=== PATIENT | male | born 1990 | race Two or more races ===

== ENCOUNTER 2016-10-28 08:33 | Day surgery (SDC) | payer OTHER ==
[~2016-10-28] VITALS: Ht 185.4 cm; Wt 86.2 kg
[2016-10-28] VITALS (10 sets, daily range): BP systolic 103–144; BP diastolic 62–81; PULSE 62–70; RESP 10–20; Ht 185.4 cm; Wt 86.2 kg
[2016-10-28] MEDS ORDERED: MEPERIDINE 25 MG INJ IV PRN (10:30)
[2016-10-28] MEDS ORDERED: DIPHENHYDRAMINE 50 MG INJ IV PRN (10:30)
[2016-10-28] MEDS ORDERED: ONDANSETRON 4 MG INJ IV PRN (10:30)
[2016-10-28] MEDS ORDERED: METOCLOPRAMIDE 10 MG INJ IV PRN (10:30)
[2016-10-28] MEDS ORDERED: FENTAnyl 50 MCG/ML VIAL IV PRN ×2 (10:30)
[2016-10-28] MEDS ORDERED: HYDROmorphONE (0.2 MG/ML) 10ML SYG IV PRN ×3 (10:30)
[2016-10-28] MEDS ORDERED: BUPIVACAINE 0.25% (MPF) 30 ML INJ ONE (11:02)
[2016-10-28] MEDS ORDERED: LIDOCAINE 2% (MDV) 20 ML INJ ONE (11:02)
[2016-10-28] MEDS ORDERED: FENTAnyl 50 MCG/ML VIAL ONE (11:32)
[2016-10-28] MEDS ORDERED: MIDAZOLAM 1 MG/ML 2 ML INJ ONE (11:42)
[2016-10-28] MEDS ORDERED: PROPOFOL 20 ML ONE (11:42)
[2016-10-28] MEDS ORDERED: LIDOCAINE 2% (SDV) 5 ML INJ ONE (11:42)
--- NOTE | 2016-10-28 12:13 | OPR ---
Date/Time of Note Date/Time of Note DATE: 10/28/16 TIME: 12:12 Operative Report Preoperative Diagnosis left arm mass right arm mass left upper leg mass Postoperative Diagnosis same Operation/Procedure Performed excision of left upper arm mass 2 cm incision and 2 cm mass excision of right upper arm mass 2 cm incision and 2 cm mass excision of left upper leg mass 6 cm incision and 7 cm mass localized adjacent tissue transfer with the use of skin flaps 20 sq cm defect therapeutic localized anesthesia Specimens right arm and left arm and left leg masses Raul BONE Oct 28, 2016 12:13
[2016-10-28] MEDS ORDERED: HYDROCODONE/APAP (5/325) TAB PO ONE (12:30)
--- NOTE | 2016-10-28 12:45 | OPR ---
DATE OF OPERATION: 10/28/2016 INDICATION: This is a 26-year-old male with a right arm mass, left arm mass, and left leg mass. He requests surgical excision. Risks, alternatives, benefits, and personnel were discussed with dariel leung. Patient expressed understanding and consents to the operation. PREOPERATIVE DIAGNOSES: 1. Right upper arm mass. 2. Left upper arm mass. 3. Left upper leg mass. PREOPERATIVE DIAGNOSES: 1. Right upper arm mass. 2. Left upper arm mass. 3. Left upper leg mass. OPERATION PERFORMED: 1. Excision of right upper arm mass with 2 cm size incision and 2 cm size mass. 2. Excision of left upper arm mass with 2 cm size incision and 2 cm size mass. 3. Excision of left upper leg mass with 6 cm size incision and 7 cm size mass. 4. Localized adjacent tissue transfer with the use of skin flaps with 20 square cm skin defect. 5. Therapeutic injection of local anesthesia. CPT code 13961. SURGEON: Emanuel Cuenca MD SPECIMEN: Right upper arm mass, left upper arm mass, and left upper leg mass. COMPLICATIONS: None. ANESTHESIA: MAC. PROCEDURE: The patient was taken to the OR and prepped and draped in the usual sterile fashion. Aguayo rgical timeout was performed. IV antibiotics were given. Attention was paid to the right upper arm mass with local anesthesia infiltrated into the mass. Transverse incision was made with a 15 blade . Dissection cautery was carried down to the mass and circumferentially excised. Due to the tissue defect, localized adjacent tissue transfer with the use of skin flaps was performed. Multilayer cl osure with interrupted 3-0 Vicryl and skin eunice. Left upper arm mass was addressed in a similar fashion with local anesthesia infiltrating the mass. Transverse incision is made with a 15 blade. Dissection cautery was carried down to the mass and c ircumferentially excised. Due to the tissue defect, localized adjacent tissue transfer with the use of skin flaps was performed. Multilayer closure with interrupted 3-0 Vicryl and skin eunice. Attention was paid to the larger left upper leg mass. The mass was infiltrated with local anesthesi a. A transverse incision is made with a 15 blade. Dissection cautery was carried down to the mass and circumferentially excised. There was good hemostasis. Due to the large tissue defect, localize d adjacent tissue transfer with the use of skin flaps was performed. Multilayer closure with interr upted 3-0 Vicryl and skin eunice. Dry dressings were placed on all sites. Dictated By: EMANUEL OLIVO/YOUSUF Conf#: [id number] DID#: [id number]
== END 2016-10-28 13:25 | disposition home or self-care (01) ==
LOC: SDS 08:33
PROVIDERS: ATTEND Surgery
DX: D17.21 Benign lipomatous neoplasm of skin and subcutaneous tissue of right arm (principal); D17.22 Benign lipomatous neoplasm of skin and subcutaneous tissue of left arm; D17.24 Benign lipomatous neoplasm of skin and subcutaneous tissue of left leg
CPT/HCPCS: 14020; 88307; J2250; J3010; Z7512; Z7610

== ENCOUNTER 2016-12-01 06:40 | Day surgery (SDC) | payer OTHER ==
[2016-11-30 10:26] VITALS: BMI 25.9
[~2016-12-01] VITALS: Ht 185.4 cm; Wt 87.0 kg
[2016-12-01] VITALS (13 sets, daily range): BP systolic 101–126; BP diastolic 61–80; PULSE 50–62; RESP 12–20; Ht 185.4 cm; Wt 87.0 kg
[~2016-12-01 06:40] MED LIST: FER325 PO
[2016-12-01] MEDS ORDERED: CEFAZOLIN 2 GM/50 ML (PMX) 50 ML IVPB ONE (08:30)
[2016-12-01] MEDS ORDERED: SOD CHLORIDE 0.9% 1,000 ML IV SCH (08:30)
[2016-12-01 08:52] LABS: ADD SCAN DIFF NO
[2016-12-01 08:59] LABS: BASOPHIL # 0.1 10^3/ul (0.0-0.1); BASOPHILS % 1.4 % (0.0-2.0); EOSINOPHILS # 0.2 10^3/ul (0.0-0.5); EOSINOPHILS % 3.6 % (0.0-7.0); HEMATOCRIT 37.1 % (42.0-52.0); HEMOGLOBIN 11.7 g/dl (14.0-18.0); LYMPHOCYTES # 1.8 10^3/ul (0.8-2.9); LYMPHOCYTES % 35.7 % (15.0-51.0); MEAN CORPUSCULAR HEMOGLOBIN 24.4 pg (29.0-33.0); MEAN CORPUSCULAR HGB CONC 31.5 g/dl (32.0-37.0); MEAN CORPUSCULAR VOLUME 77.3 fl (82.0-101.0); MEAN PLATELET VOLUME 10.3 fl (7.4-10.4); MONOCYTE # 0.6 10^3/ul (0.3-0.9); MONOCYTES % 10.9 % (0.0-11.0); NEUTROPHIL # 2.4 10^3/ul (1.6-7.5); NEUTROPHILS % 48.2 % (39.0-77.0); PLATELET COUNT 193 10^3/UL (140-415); RED CELL DISTRIBUTION WIDTH 14.9 % (11.5-14.5)
[2016-12-01 09:12] LABS: INR 1.11; PROTIME 14.3 Sec (12.2-14.2); PT RATIO 1.1
[2016-12-01 09:13] LABS: PARTIAL THROMBOPLASTIN TIME 29.3 Sec (25.0-35.0)
[2016-12-01] MEDS ORDERED: BUPIVACAINE 0.25% (MPF) 30 ML INJ ONE (09:20)
[2016-12-01 09:22] LABS: ALBUMIN/GLOBULIN RATIO 1.33; BILIRUBIN,INDIRECT 0.1 mg/dl (0-1.1); BILIRUBIN,TOTAL 0.1 mg/dl (0.2-1.3)
[2016-12-01 09:23] LABS: CALCIUM 9.3 mg/dl (8.4-10.2); CREATININE 0.72 mg/dl (0.61-1.24)
[2016-12-01] MEDS ORDERED: FENTAnyl 50 MCG/ML VIAL ONE (09:44)
[2016-12-01] MEDS ORDERED: CEFAZOLIN 1 GM INJ ONE (09:59)
[2016-12-01] MEDS ORDERED: SUCCINYLCHOLINE CHLORIDE 100 MG/5 ML SYG IV ONE (09:59)
[2016-12-01] MEDS ORDERED: PROPOFOL 20 ML ONE (09:59)
[2016-12-01] MEDS ORDERED: LIDOCAINE 2% (SDV) 5 ML INJ ONE (09:59)
--- NOTE | 2016-12-01 10:20 | OPR ---
Date/Time of Note Date/Time of Note DATE: 12/01/16 TIME: 10:16 Operative Report Procedure Date: Dec 01, 2016 Preoperative Diagnosis abdominal mass x 3 Postoperative Diagnosis same Operation Performed 1. excision of left upper abdominal wall mass 6 cm incision and 6 cm mass 2. excision of right upper abdominal wall mass 6 cm incision and 6 cm mass 3. excision of lower midline abdominal wall mass 5 cm incision and 5 cm mass 4. localized adjacent tissue transfer with the use of skin flaps with 32 sq cm defect 5. therapeutic injection of subcutaneous marcaince cpt code 19125 Surgeon: Raul BONE Specimens abdominal masses x 3 Indications This is a 26-year-old male with multiple abdominal masses. Patient requires surgical excision. Risks alternatives benefits and percent were discussed the patient. Patient expresses understanding since the operation. Procedure Description Patient is taken to the OR and prepped and draped in usual sterile fashion. Surgical timeout is performed IV antibiotics given. Transverse incision is made over the right upper abdominal mass with a 15 blade dissection cautery was carried out the mass circumferentially excised is good hemostasis due to tissue defect localized adjacent tissue transfer with these of skin flaps were performed multilayer closure of interrupted 3-0 Vicryl and skin eunice attention is paid to the left upper abdominal wall mass. Transverse incision was made over the mass with a 15 blade dissection cautery was carried out the mass. The mass was circumferentially excised. There is good hemostasis. Due to tissue defect localized adjacent tissue transfer with these of skin flaps were performed. Multilayer closure of interrupted 3-0 Vicryl and skin eunice. Attention is paid to the lower abdominal midline mass. Transverse incision is made with a 15 blade over the mass. Dissection cautery was carried onto the mass and circumferentially excised. There is good hemostasis due to tissue defect localized adjacent tissue transfer to the skin flaps were performed multilayer closure of interrupted 3-0 Vicryl and skin eunice. Therapeutic subcu times Marcaine is injected into all incision sites. Dry dressings were applied. Raul BONE Dec 01, 2016 10:19
[2016-12-01] MEDS ORDERED: HYDROmorphONE (0.2 MG/ML) 10ML SYG IV PRN ×3 (10:30)
[2016-12-01] MEDS ORDERED: DIPHENHYDRAMINE 50 MG INJ IV PRN (10:30)
[2016-12-01] MEDS ORDERED: HYDROCODONE/APAP (5/325) TAB PO ONE (10:30)
[2016-12-01] MEDS ORDERED: FENTAnyl 50 MCG/ML VIAL IV PRN ×2 (10:30)
[2016-12-01] MEDS ORDERED: MEPERIDINE 25 MG INJ IV PRN (10:30)
[2016-12-01] MEDS ORDERED: ONDANSETRON 4 MG INJ IV PRN (10:30)
[2016-12-01] MEDS ORDERED: METOCLOPRAMIDE 10 MG INJ IV PRN (10:30)
== END 2016-12-01 11:58 | disposition home or self-care (01) ==
LOC: SDS 06:40
PROVIDERS: ATTEND Surgery
DX: D17.1 Benign lipomatous neoplasm of skin and subcutaneous tissue of trunk (principal)
CPT/HCPCS: 14301; 80053; 85025; 85610; 85730; 88307; J0690; J3010; J7999; Z7512; Z7610

== ENCOUNTER 2016-12-30 08:16 | Day surgery (SDC) | payer OTHER ==
[2016-12-29 14:08] VITALS: BMI 23.2
[2016-12-30] VITALS (9 sets, daily range): BP systolic 94–114; BP diastolic 61–75; PULSE 58–65; RESP 10–20; Ht 185.4 cm; Wt 85.0 kg
[~2016-12-30] VITALS: Ht 185.4 cm; Wt 85.0 kg
[~2016-12-30 08:16] MED LIST changes: +CEFAZOLIN 2 GM/50 ML (PMX) 50 ML IVPB ONE; +SOD CHLORIDE 0.9% 1,000 ML IV SCH
[2016-12-30] MEDS ORDERED: HYDROmorphONE (0.2 MG/ML) 10ML SYG IV PRN ×2 (08:30)
[2016-12-30] MEDS ORDERED: DIPHENHYDRAMINE 50 MG INJ IV PRN (08:30)
[2016-12-30] MEDS ORDERED: FENTAnyl 50 MCG/ML VIAL IV PRN (08:30)
[2016-12-30] MEDS ORDERED: MEPERIDINE 25 MG INJ IV PRN (08:30)
[2016-12-30] MEDS ORDERED: METOCLOPRAMIDE 10 MG INJ IV PRN (08:30)
[2016-12-30] MEDS ORDERED: ONDANSETRON 4 MG INJ IV PRN (08:30)
[2016-12-30] MEDS ORDERED: PROCHLORPERAZINE 10 MG INJ IV PRN (08:30)
[2016-12-30] MEDS ORDERED: OXYCODONE/ACETAMINOPHEN (5/325) TAB PO PRN ×2 (08:30)
[2016-12-30] MEDS ORDERED: LIDOCAINE 2% (SDV) 5 ML INJ ONE (09:32)
[2016-12-30] MEDS ORDERED: FENTAnyl 50 MCG/ML VIAL ONE (09:32)
[2016-12-30] MEDS ORDERED: MIDAZOLAM 1 MG/ML 2 ML INJ ONE (09:32)
[2016-12-30] MEDS ORDERED: PROPOFOL 20 ML ONE (09:32)
[2016-12-30] MEDS ORDERED: CEFAZOLIN 1 GM INJ ONE (09:55)
[2016-12-30] MEDS ORDERED: BUPIVACAINE 0.25% (MPF) 30 ML INJ ONE (09:59)
[2016-12-30] MEDS ORDERED: ONDANSETRON 4 MG INJ ONE (10:02)
[2016-12-30] MEDS ORDERED: KETOROLAC 30 MG INJ ONE (10:02)
[2016-12-30] MEDS ORDERED: METOCLOPRAMIDE 10 MG INJ ONE (10:02)
--- NOTE | 2016-12-30 10:43 | OPR ---
Date/Time of Note Date/Time of Note DATE: 12/30/16 TIME: 10:39 Operative Report Procedure Date: Dec 30, 2016 Preoperative Diagnosis abdominal masses x 3 Postoperative Diagnosis same Operation Performed 1. excision of right lower abdominal mass 5 cm mass 5 cm incision 2. excision of left upper abdominal mass 8 cm mass 8 cm incision 3. excision of left lower abdominal mass 7 cm mass 7 cm incision 4 localized adjacent tissue transfer with the use of skin flaps 40 sq cm defect 5. therapeutic injection of subcutaneous marcaine cpt code 95327 Surgeon: Raul BONE Anesthesia Type: general Estimated Blood Loss: 0 - 10 ml's Specimens right lower abdominal mass left upper abdominal mass left lower abdominal mass Grafts/Implants: none Complications: no Indications This is a 26-year-old male with multiple masses in the abdomen. He requires surgical excision. Risks alternatives benefits and percent were discussed the patient. Patient's best understanding and consents to the operation. Procedure Description Patient taken to the OR and prepped and draped in usual sterile fashion. Surgical time was performed. IV antibiotics are given. Right lower abdominal incision is made with the 15 blade transversely over the mass. Dissection cautery was carried onto the mass and circumferentially excised. Due to large tissue defect localized adjacent tissue transfer with these of skin flaps was performed multilayer closure with interrupted 3-0 Vicryl and skin eunice for closure. Attention is paid to the left upper abdominal mass. Transverse incision is made with a 15 blade. Dissection cautery was carried onto the mass. The mass was circumferentially excised. Due to the large tissue defect localized adjacent tissue transfer with use of skin flaps were performed. Multilayer closure with interrupted 3-0 Vicryl and skin eunice. Attention was then paid to the left lower abdominal mass. Transverse incision was made with a 15 blade. Dissection cautery was carried onto the mass and circumferentially excised. Due to tissue defect localized adjacent tissue transfer with use of skin flaps were performed. Multilayer closure with interrupted 3-0 Vicryl and skin eunice. Therapeutic subcutaneous injection with Marcaine is placed into all incision sites. Dry dressings were applied. Raul BONE Dec 30, 2016 10:43
[2016-12-30] MEDS ORDERED: HYDROCODONE/APAP (5/325) TAB PO ONE (11:00)
== END 2016-12-30 12:17 | disposition home or self-care (01) ==
LOC: SDS 08:16
PROVIDERS: ATTEND Surgery
DX: D17.1 Benign lipomatous neoplasm of skin and subcutaneous tissue of trunk (principal)
CPT/HCPCS: 14301; 22903; 88307; J0690; J1885; J2250; J2405; J2765; J3010; Z7512; Z7610